=== PATIENT | male | born 1940 | race Caucasian/White ===

== ENCOUNTER 2024-05-25 16:58 | Inpatient (IN) | payer MEDICARE, OTHER ==
[~2024-05-25] VITALS: Ht 167.6 cm; Wt 70.3 kg
[2024-05-25 18:11] LABS: BASOPHILS % (AUTO) 0.2 % (0.0-2.0); HEMATOCRIT 45 % (39-51); HEMOGLOBIN 15.5 g/dL (13.5-17.5); LYMPHOCYTES # (AUTO) 0.5 K/uL (0.8-4.8); LYMPHOCYTES % (AUTO) 5.5 % (20.0-44.0); MEAN CORPUSCULAR HEMOGLOBIN 31 PG (26.0-33.0); MEAN CORPUSCULAR HGB CONC 34 g/dl (31.0-36.0); MEAN CORPUSCULAR VOLUME 90 fL (80-96); MONOCYTES # (AUTO) 1.3 K/uL (0.1-1.30); MONOCYTES % (AUTO) 13.7 % (2.0-12.0); NEUTROPHILS # (AUTO) 7.8 K/uL (1.8-8.9); NEUTROPHILS % (AUTO) 80.6 % (43.0-81.0); PLATELET COUNT (AUTO) 207 K/uL (150-450); RED BLOOD CELL COUNT(AUTO) 5.04 MIL/uL (4.5-6.0); WHITE BLOOD COUNT (AUTO) 9.7 K/uL (4.3-11.0)
[2024-05-25 18:33] LABS: CALCIUM, SERUM 8.6 mg/dL (8.5-10.1); CARBON DIOXIDE 26 mmol/L (21-32); CHLORIDE 104 mmol/L (98-107); CREATININE 1.1 mg/dL (0.6-1.3); GLUCOSE 140 mg/dL (74-106); POTASSIUM 3.7 mmol/L (3.5-5.1); SODIUM SERUM 138 mmol/L (136-145); UREA NITROGEN, BLOOD 27 mg/dL (7-18)
[2024-05-25 18:39] LABS: ALANINE AMINOTRANSFERASE 22 U/L (12-78); ALBUMIN 2.9 g/dL (3.4-5.0); ALCOHOL, BLOOD < 3 mg/dL (0-10); ALKALINE PHOSPHATASE 70 U/L (46-116); ASPARTATE AMINOTRANSFERASE 33 U/L (15-37); BILIRUBIN,DIRECT 0.2 mg/dL (0.0-0.2); BILIRUBIN,TOTAL 0.5 mg/dL (0.2-1.0); SALICYLATE 3.5 mg/dL (2.8-20.0); TOTAL PROTEIN, SERUM 7.9 g/dL (6.4-8.2)
[2024-05-25 19:19] LABS: ACETAMINOPHEN <10 ug/ml (10-30)
[2024-05-25 19:51] LABS: APPEARANCE,URINE CLEAR (CLEAR); BILIRUBIN,URINE NEGATIVE (NEGATIVE); BLOOD, URINE 2+ Ery/uL (NEGATIVE); COLOR,URINE YELLOW (YELLOW); KETONES,URINE TRACE mg/dL (NEGATIVE); LEUKOCYTE ESTERASE ,URINE NEGATIVE (NEGATIVE); NITRITE, URINE POSITIVE (NEGATIVE); PH,URINE 5.5 (5.0-8.0); PROTEIN,URINE 1+ mg/dl (NEGATIVE); UGLUCOSE NEGATIVE (NEGATIVE)
[2024-05-25 20:12] LABS: ADD URINE CULTURE YES; BACTERIA,URINE Few /HPF (None Seen); RBC,URINE 21-50 /HPF (0-2); WBC,URINE 0-2 /HPF (0-3)
[2024-05-25 20:13] LABS: SQUAMOUS EPITHELIAL CELL,UR 0-2 /HPF (None Seen)
[2024-05-25 20:16] LABS: AMPHETAMINE, URINE NEGATIVE (NEGATIVE); BARBITURATE, URINE NEGATIVE (NEGATIVE); BENZODIAZEPINE, URINE NEGATIVE (NEGATIVE); CANNABINOID, URINE NEGATIVE (NEGATIVE); COCCAINE, URINE NEGATIVE (NEGATIVE); OPIATE, URINE NEGATIVE (NEGATIVE); PHENCYCLIDINE SCREEN,URINE NEGATIVE (NEGATIVE)
[2024-05-25] MEDS: IV NS 0.9% 1,000 ML BAG IV ONE (21:00)
[2024-05-25] MEDS ORDERED: CT SWABBABLE VALVE TRANS SET 1 EA INFUS.SET MC ONE (22:18)
[2024-05-25] MEDS ORDERED: IOHEXOL-350 100 ML VIAL IV ONE (22:18)
[2024-05-25] MEDS ORDERED: IV NS 0.9% 250 ML IV ONE (22:20)
[2024-05-25] MEDS ORDERED: ONDANSETRON HCL/PF 4 MG/2 ML VIAL IVP PRN (22:30)
[2024-05-25] MEDS ORDERED: IV NS 0.9% 1,000 ML IV PRN (22:30)
[2024-05-25] MEDS ORDERED: MAGNESIUM HYDROXIDE 30 ML UDC PO PRN (22:30)
[2024-05-25] MEDS ORDERED: MAG HYDROX/AL HYDROX/SIMETH 30 ML UDC PO PRN (22:30)
[2024-05-25] MEDS ORDERED: Z GUARD REMEDY 4 OZ OINT TP PRN (22:30)
[2024-05-25] MEDS ORDERED: ACETAMINOPHEN 325 MG TABLET PO PRN (22:30)
[2024-05-25] MEDS ORDERED: methylPREDNISolone SOD SUCC 40 MG/ML VIAL ONE (23:10)
[2024-05-25] MEDS: ALBUTEROL FS 2.5 MG/3 ML VIAL.NEB NEB SCH (23:12)
[2024-05-25] MEDS: IPRATROPIUM NEB FS 0.5 MG/2.5 ML AMPUL.NEB NEB SCH (23:12)
[2024-05-25 23:14] VITALS: O2SAT 95
[2024-05-25] MEDS: methylPREDNISolone SOD SUCC 40 MG/ML VIAL IV SCH (23:14)
[2024-05-25] MEDS ORDERED: IPRATROPIUM NEB FS 0.5 MG/2.5 ML AMPUL.NEB ONE (23:16)
[2024-05-25] MEDS ORDERED: ALBUTEROL FS 2.5 MG/3 ML VIAL.NEB ONE (23:16)
[2024-05-25 23:24] VITALS: O2SAT 99
[2024-05-25] MEDS ORDERED: PIPERACI/TAZO 3.375GM/D5W 50ML PB IV ONE (23:42)
[2024-05-25] MEDS: PIPERACILLIN /TAZOBACTAM 3.375 G in IV D5W 50 ML IV ONE (23:47)
[2024-05-26] MEDS ORDERED: PIPERACILLIN /TAZOBACTAM 3.375 G in IV D5W 50 ML IV SCH ×2 (06:00)
[2024-05-26] MEDS: IV D5/ 0.9% NACL 1,000 ML IV PRN (09:47)
[2024-05-26] MEDS: LEVOFLOXACIN (250MG) 250 MG TABLET PO ONE (09:56)
[2024-05-26] MEDS: NICOTINE PATCH (14MG) 14 MG PATCH.TD24 TD SCH (09:56)
[2024-05-26] MEDS: ENOXAPARIN SODIUM 40 MG/0.4 ML DISP.SYRIN SQ SCH (09:57)
[2024-05-26] MEDS: PIPERACILLIN /TAZOBACTAM 3.375 G in IV D5W 100 ML IV SCH (10:13)
[2024-05-26] MEDS ORDERED: LORAZEPAM 0.5 MG TABLET PO PRN (12:30)
[2024-05-26 12:35] LABS: BASOPHILS % (AUTO) 0.1 % (0.0-2.0); HEMATOCRIT 43 % (39-51); HEMOGLOBIN 14.6 g/dL (13.5-17.5); LYMPHOCYTES # (AUTO) 0.6 K/uL (0.8-4.8); LYMPHOCYTES % (AUTO) 5.9 % (20.0-44.0); MEAN CORPUSCULAR HEMOGLOBIN 31 PG (26.0-33.0); MEAN CORPUSCULAR HGB CONC 34 g/dl (31.0-36.0); MEAN CORPUSCULAR VOLUME 91 fL (80-96); MONOCYTES # (AUTO) 1.6 K/uL (0.1-1.30); MONOCYTES % (AUTO) 16.9 % (2.0-12.0); NEUTROPHILS # (AUTO) 7.4 K/uL (1.8-8.9); NEUTROPHILS % (AUTO) 77.1 % (43.0-81.0); PLATELET COUNT (AUTO) 216 K/uL (150-450); RED BLOOD CELL COUNT(AUTO) 4.74 MIL/uL (4.5-6.0); RED CELL DISTRIBUTION WIDTH 14.1 % (11.5-15.0); WHITE BLOOD COUNT (AUTO) 9.6 K/uL (4.3-11.0)
[2024-05-26] MEDS: risperiDONE-M 0.5 MG TAB.RAPDIS PO SCH (12:50)
[2024-05-26 13:05] LABS: ALBUMIN 2.6 g/dL (3.4-5.0); BILIRUBIN,TOTAL 0.4 mg/dL (0.2-1.0); CALCIUM, SERUM 8.5 mg/dL (8.5-10.1); CREATININE 1.1 mg/dL (0.6-1.3); MAGNESIUM 2.1 mg/dL (1.8-2.4); PHOSPHORUS 3.3 mg/dL (2.5-4.9); POTASSIUM 3.9 mmol/L (3.5-5.1); TOTAL PROTEIN, SERUM 7.4 g/dL (6.4-8.2)
[2024-05-26 14:00] VITALS: O2SAT 94
[2024-05-26 14:10] VITALS: O2SAT 95
[2024-05-26] MEDS: DIVALPROEX SODIUM 125 MG TABLET.DR PO SCH (16:24)
[2024-05-26 20:00] VITALS: BP 119/81; TEMP 97.5; O2SAT 95
[2024-05-26 20:08] VITALS: O2SAT 95
[2024-05-26 20:18] VITALS: O2SAT 98
[2024-05-27] VITALS (12 sets, daily range): BP systolic 153–160; BP diastolic 66–113; TEMP 97.5–98.8; O2SAT 93–98
[2024-05-27] MEDS ORDERED: NICOTINE PATCH (21MG) 21 MG PATCH.TD24 TD SCH (09:30)
[2024-05-27] MEDS: LEVOFLOXACIN (250MG) 250 MG TABLET PO SCH (09:47)
[2024-05-27] MEDS: CLONIDINE HCL 0.1 MG TABLET PO ONE (20:19)
[2024-05-28] VITALS (10 sets, daily range): BP systolic 137–165; BP diastolic 83–98; TEMP 98–98.1; O2SAT 90–96
[2024-05-28] MEDS: NICOTINE PATCH (21MG) 21 MG PATCH.TD24 TD SCH (08:52)
[2024-05-28] MEDS: methylPREDNISolone SOD SUCC 40 MG/ML VIAL IV SCH (14:31)
[2024-05-29] VITALS (10 sets, daily range): BP systolic 158–180; BP diastolic 97–100; TEMP 97.7–97.8; O2SAT 88–98
[2024-05-29 08:42] LABS: BASOPHILS % (AUTO) 0.1 % (0.0-2.0); HEMATOCRIT 40 % (39-51); HEMOGLOBIN 13.4 g/dL (13.5-17.5); LYMPHOCYTES # (AUTO) 0.9 K/uL (0.8-4.8); LYMPHOCYTES % (AUTO) 10.6 % (20.0-44.0); MEAN CORPUSCULAR HEMOGLOBIN 31 PG (26.0-33.0); MEAN CORPUSCULAR HGB CONC 34 g/dl (31.0-36.0); MEAN CORPUSCULAR VOLUME 91 fL (80-96); MONOCYTES # (AUTO) 1.1 K/uL (0.1-1.30); MONOCYTES % (AUTO) 13.4 % (2.0-12.0); NEUTROPHILS # (AUTO) 6.2 K/uL (1.8-8.9); NEUTROPHILS % (AUTO) 75.9 % (43.0-81.0); PLATELET COUNT (AUTO) 211 K/uL (150-450); RED BLOOD CELL COUNT(AUTO) 4.38 MIL/uL (4.5-6.0); RED CELL DISTRIBUTION WIDTH 14.7 % (11.5-15.0); WHITE BLOOD COUNT (AUTO) 8.2 K/uL (4.3-11.0)
[2024-05-29 10:21] LABS: CALCIUM, SERUM 8.3 mg/dL (8.5-10.1); POTASSIUM 3.8 mmol/L (3.5-5.1)
[2024-05-29] MEDS: IV D5W 1,000 ML IV SCH (10:39)
[2024-05-29] MEDS ORDERED: risperiDONE-M 0.5 MG TAB.RAPDIS PO PRN (11:00)
[2024-05-29] MEDS: risperiDONE-M 0.5 MG TAB.RAPDIS PO SCH ×2 (12:17→22:00)
[2024-05-29] MEDS: DIVALPROEX SODIUM 125 MG CAP.SPRINK PO SCH (16:03)
[2024-05-29] MEDS: CLONIDINE HCL 0.1 MG TABLET PO PRN (18:36)
[2024-05-29] MEDS: hydrALAZINE HCL IV 20 MG VIAL IV ONE (23:02)
[2024-05-30] VITALS (12 sets, daily range): BP systolic 143–168; BP diastolic 79–103; TEMP 97.7–98.1; O2SAT 88–99
[2024-05-30 06:13] LABS: EOSINOPHILS % (AUTO) 0.1 % (0.0-6.0); HEMATOCRIT 42 % (39-51); HEMOGLOBIN 13.9 g/dL (13.5-17.5); LYMPHOCYTES # (AUTO) 1.1 K/uL (0.8-4.8); LYMPHOCYTES % (AUTO) 11.4 % (20.0-44.0); MEAN CORPUSCULAR HEMOGLOBIN 30 PG (26.0-33.0); MEAN CORPUSCULAR HGB CONC 33 g/dl (31.0-36.0); MEAN CORPUSCULAR VOLUME 91 fL (80-96); MONOCYTES # (AUTO) 1.3 K/uL (0.1-1.30); MONOCYTES % (AUTO) 13.9 % (2.0-12.0); NEUTROPHILS % (AUTO) 74.6 % (43.0-81.0); PLATELET COUNT (AUTO) 213 K/uL (150-450); RED BLOOD CELL COUNT(AUTO) 4.59 MIL/uL (4.5-6.0); RED CELL DISTRIBUTION WIDTH 14.7 % (11.5-15.0); WHITE BLOOD COUNT (AUTO) 9.4 K/uL (4.3-11.0)
[2024-05-30 06:38] LABS: CALCIUM, SERUM 8.4 mg/dL (8.5-10.1); POTASSIUM 3.8 mmol/L (3.5-5.1)
[2024-05-30] MEDS ORDERED: CLONIDINE HCL 0.1 MG TABLET PO PRN (10:00)
[2024-05-31] VITALS (12 sets, daily range): BP systolic 142–176; BP diastolic 83–112; TEMP 97.7–98.2; O2SAT 87–99
[2024-05-31 07:36] LABS: BASOPHILS % (AUTO) 0.1 % (0.0-2.0); EOSINOPHILS % (AUTO) 0.3 % (0.0-6.0); HEMATOCRIT 43 % (39-51); HEMOGLOBIN 13.9 g/dL (13.5-17.5); LYMPHOCYTES # (AUTO) 1.3 K/uL (0.8-4.8); LYMPHOCYTES % (AUTO) 12.1 % (20.0-44.0); MEAN CORPUSCULAR HEMOGLOBIN 30 PG (26.0-33.0); MEAN CORPUSCULAR HGB CONC 33 g/dl (31.0-36.0); MEAN CORPUSCULAR VOLUME 91 fL (80-96); MONOCYTES # (AUTO) 1.2 K/uL (0.1-1.30); MONOCYTES % (AUTO) 11.1 % (2.0-12.0); NEUTROPHILS # (AUTO) 8.5 K/uL (1.8-8.9); NEUTROPHILS % (AUTO) 76.4 % (43.0-81.0); PLATELET COUNT (AUTO) 241 K/uL (150-450); RED BLOOD CELL COUNT(AUTO) 4.66 MIL/uL (4.5-6.0); RED CELL DISTRIBUTION WIDTH 14.5 % (11.5-15.0); WHITE BLOOD COUNT (AUTO) 11.1 K/uL (4.3-11.0)
[2024-05-31 07:54] LABS: CALCIUM, SERUM 8.6 mg/dL (8.5-10.1); POTASSIUM 3.7 mmol/L (3.5-5.1)
[2024-05-31 17:10] LABS: ABG BASE EXCESS 4.6 mmol/L (-2.0-3.0); ABG OXYGEN SATURATION 95.3 % (94.0-98.0); ABG PCO2 42.7 mmHg (35.0-48.0); ABG PH 7.452 (7.350-7.450); ABG PO2 73.4 mmHg (83.0-108.0); ABG TOTAL HEMOGLOBIN 14.5 G/dL (13.5-17.5); COHb 0.8 % (0.5-1.5); MetHb 0.1 % (0.0-1.5); O2Hb 94.4 % (94.0-97.0); SITE, ABG RIGHT RADIAL
[2024-06-01] VITALS (7 sets, daily range): BP systolic 135; BP diastolic 79; TEMP 97.7; O2SAT 91–97
[2024-06-01 07:05] LABS: EOSINOPHILS # (AUTO) 0.1 K/uL (0.0-0.7); EOSINOPHILS % (AUTO) 0.7 % (0.0-6.0); HEMATOCRIT 40 % (39-51); HEMOGLOBIN 13.3 g/dL (13.5-17.5); LYMPHOCYTES # (AUTO) 1.1 K/uL (0.8-4.8); LYMPHOCYTES % (AUTO) 10.2 % (20.0-44.0); MEAN CORPUSCULAR HEMOGLOBIN 30 PG (26.0-33.0); MEAN CORPUSCULAR HGB CONC 34 g/dl (31.0-36.0); MEAN CORPUSCULAR VOLUME 91 fL (80-96); MONOCYTES # (AUTO) 1.2 K/uL (0.1-1.30); MONOCYTES % (AUTO) 11.4 % (2.0-12.0); NEUTROPHILS # (AUTO) 8.4 K/uL (1.8-8.9); NEUTROPHILS % (AUTO) 77.7 % (43.0-81.0); PLATELET COUNT (AUTO) 236 K/uL (150-450); RED BLOOD CELL COUNT(AUTO) 4.37 MIL/uL (4.5-6.0); RED CELL DISTRIBUTION WIDTH 14.6 % (11.5-15.0); WHITE BLOOD COUNT (AUTO) 10.8 K/uL (4.3-11.0)
[2024-06-01] MEDS ORDERED: IV D5W 1,000 ML IV PRN (08:11)
[2024-06-01 08:30] LABS: SERUM AMMONIA 37 umol/L (11-32)
[2024-06-01 08:36] LABS: ALANINE AMINOTRANSFERASE 131 U/L (12-78); ALBUMIN 2.3 g/dL (3.4-5.0); ALKALINE PHOSPHATASE 60 U/L (46-116); ASPARTATE AMINOTRANSFERASE 43 U/L (15-37); BILIRUBIN,DIRECT 0.2 mg/dL (0.0-0.2); BILIRUBIN,TOTAL 0.6 mg/dL (0.2-1.0); TOTAL PROTEIN, SERUM 6.7 g/dL (6.4-8.2)
[2024-06-01 08:42] LABS: CALCIUM, SERUM 8.5 mg/dL (8.5-10.1); CREATININE 0.9 mg/dL (0.6-1.3); POTASSIUM 3.8 mmol/L (3.5-5.1)
[2024-06-01] MEDS: predniSONE 20 MG TABLET PO SCH (08:59)
[2024-06-01 09:18] LABS: VALPROIC ACID < 3 ug/mL (50-100)
[2024-06-01] MEDS ORDERED: ALBUT2 NEB (09:28)
[2024-06-01] MEDS ORDERED: ACET325T53 PO (09:28)
[2024-06-01] MEDS ORDERED: CLON0.1T PO (09:28)
[2024-06-01] MEDS ORDERED: LEVO250T59 PO (09:28)
[2024-06-01] MEDS ORDERED: DIVA125C2 PO (09:28)
[2024-06-01] MEDS ORDERED: ENOX40DI SQ (09:28)
[2024-06-01] MEDS ORDERED: RISP0.5T74 PO (09:28)
[2024-06-01] MEDS ORDERED: MAG30ORA PO (09:28)
[2024-06-01] MEDS ORDERED: NICO-762 TD (09:28)
[2024-06-01] MEDS ORDERED: PRED20TA PO (09:28)
== END 2024-06-01 15:00 | DRG 190 ==
LOC: ER 17:10 → TRANSITION 05-26 03:26 → MED 05-26 06:06
PROVIDERS: ADMIT Nurse Practitioner Acute Care; ATTEND Internal Medicine
DX: J44.1 Chronic obstructive pulmonary disease with (acute) exacerbation (principal); G93.41 Metabolic encephalopathy; J96.01 Acute respiratory failure with hypoxia; N39.0 Urinary tract infection, site not specified; E44.0 Moderate protein-calorie malnutrition; E87.0 Hyperosmolality and hypernatremia; N17.9 Acute kidney failure, unspecified; E86.0 Dehydration; E86.1 Hypovolemia; E88.09 Other disorders of plasma-protein metabolism, not elsewhere classified; F03.90 Unspecified dementia, unspecified severity, without behavioral disturbance, psychotic disturbance, mood disturbance, and anxiety; Z71.6 Tobacco abuse counseling; Z20.822 Contact with and (suspected) exposure to COVID-19; Z73.6 Limitation of activities due to disability; Z68.25 Body mass index [BMI] 25.0-25.9, adult; F17.210 Nicotine dependence, cigarettes, uncomplicated; F25.0 Schizoaffective disorder, bipolar type; B96.89 Other specified bacterial agents as the cause of diseases classified elsewhere
CPT/HCPCS: 36415; 36600; 71045-TC; 80048-TC; 80053-TC; 80076-TC; 80164-TC; 81001; 82140-TC; 82607-TC; 82803-TC; 83735-TC; 83880; 84100-TC; 84484-TC; 85025-TC; 85378-TC; 87086-TC; 92526; 92611-TC; 93307-TC; 94760-TC; 94762-TC; 94799-TC; A4223; G0378; G0480; J0360; J1650; J2543; J2919; J7030; J7042; J7050; J7060; J7070; Q9967

== ENCOUNTER 2024-06-21 11:44 | Inpatient (IN) | payer MEDICARE, OTHER ==
[~2024-06-21] VITALS: Ht 182.9 cm; Wt 72.1 kg
[2024-06-21] VITALS (15 sets, daily range): BP systolic 132–161; BP diastolic 68–101; TEMP 97.9–98.8; O2SAT 90–96
[2024-06-21 12:28] LABS: CALCIUM, SERUM 8.6 mg/dL (8.5-10.1); CARBON DIOXIDE 33 mmol/L (21-32); CHLORIDE 102 mmol/L (98-107); CREATININE 0.8 mg/dL (0.6-1.3); GLUCOSE 122 mg/dL (74-106); POTASSIUM 4.3 mmol/L (3.5-5.1); SODIUM SERUM 139 mmol/L (136-145); UREA NITROGEN, BLOOD 21 mg/dL (7-18)
[2024-06-21 12:32] LABS: INR 1.03 (0.91-1.10); PARTIAL THROMBOPLASTIN TIME 24.9 SEC (24.3-34.3); PROTHROMBIN TIME 10.9 SECS (9.2-11.1)
[2024-06-21 12:34] LABS: BASOPHILS # (AUTO) 0.1 K/uL (0.0-0.2); BASOPHILS % (AUTO) 0.7 % (0.0-2.0); EOSINOPHILS # (AUTO) 0.3 K/uL (0.0-0.7); EOSINOPHILS % (AUTO) 3.1 % (0.0-6.0); HEMATOCRIT 39 % (39-51); HEMOGLOBIN 12.9 g/dL (13.5-17.5); LYMPHOCYTES # (AUTO) 1.5 K/uL (0.8-4.8); LYMPHOCYTES % (AUTO) 17.7 % (20.0-44.0); MEAN CORPUSCULAR HEMOGLOBIN 30 PG (26.0-33.0); MEAN CORPUSCULAR HGB CONC 33 g/dl (31.0-36.0); MEAN CORPUSCULAR VOLUME 91 fL (80-96); MONOCYTES # (AUTO) 0.9 K/uL (0.1-1.30); NEUTROPHILS # (AUTO) 5.6 K/uL (1.8-8.9); NEUTROPHILS % (AUTO) 67.5 % (43.0-81.0); RED BLOOD CELL COUNT(AUTO) 4.28 MIL/uL (4.5-6.0); RED CELL DISTRIBUTION WIDTH 14.7 % (11.5-15.0); WHITE BLOOD COUNT (AUTO) 8.3 K/uL (4.3-11.0)
[2024-06-21 12:36] LABS: ALANINE AMINOTRANSFERASE 26 U/L (12-78); ALBUMIN 2.1 g/dL (3.4-5.0); ALKALINE PHOSPHATASE 87 U/L (46-116); ASPARTATE AMINOTRANSFERASE 19 U/L (15-37); BILIRUBIN,DIRECT 0.1 mg/dL (0.0-0.2); BILIRUBIN,TOTAL 0.2 mg/dL (0.2-1.0); LIPASE 29 U/L (16-77); TOTAL PROTEIN, SERUM 7.5 g/dL (6.4-8.2)
[2024-06-21 12:43] LABS: PLATELET COUNT (AUTO) 2 K/uL (150-450)
[2024-06-21] MEDS ORDERED: dexaMETHasone SOD PHOSPHATE 1 ML ONE (12:58)
[2024-06-21 13:05] LABS: EOSINOPHILS % (MANUAL) 2 % (0-4); LYMPHOCYTES % (MANUAL) 18 % (16-48); MONOCYTES % (MANUAL) 9 % (0-11.0); NEUTROPHILS % (MANUAL) 71 (42-76); PLATELET ESTIMATE DECREASED
[2024-06-21] MEDS: dexaMETHasone SOD PHOSPHATE 10 MG/ML VIAL IV ONE (13:05)
[2024-06-21 13:06] LABS: ANISOCYTOSIS 1+
[2024-06-21] MEDS ORDERED: DIVA125T2 PO (14:04)
[2024-06-21] MEDS ORDERED: ALBU2.5V38 NEB (14:04)
[2024-06-21] MEDS ORDERED: RISP0.5T65 PO (14:04)
[2024-06-21] MEDS ORDERED: ALUM320O4 PO (14:04)
[2024-06-21] MEDS ORDERED: MAGN400O6 PO (14:04)
[2024-06-21] MEDS ORDERED: KETO15CR2 TP (14:04)
[2024-06-21] MEDS ORDERED: MULT-213 PO (14:04)
[2024-06-21] MEDS ORDERED: ACET650S11 RC (14:04)
[2024-06-21] MEDS ORDERED: ENOX40DI9 SQ (14:04)
[2024-06-21] MEDS ORDERED: IPRA3AMP23 IH (14:04)
[2024-06-21] MEDS ORDERED: ACETAMINOPHEN 325 MG TABLET PO PRN (15:00)
[2024-06-21] MEDS ORDERED: ONDANSETRON HCL/PF 4 MG/2 ML VIAL IVP PRN (15:00)
[2024-06-21] MEDS ORDERED: MAGNESIUM HYDROXIDE 30 ML UDC PO PRN (15:00)
[2024-06-21] MEDS ORDERED: MAG HYDROX/AL HYDROX/SIMETH 30 ML UDC PO PRN (15:00)
[2024-06-21] MEDS ORDERED: Z GUARD REMEDY 4 OZ OINT TP PRN (15:00)
[2024-06-21] MEDS: dexaMETHasone SOD PHOSPHATE 10 MG/ML VIAL IV STA (16:32)
[2024-06-21] MEDS: risperiDONE 0.25 MG TABLET PO SCH (16:32)
[2024-06-21] MEDS ORDERED: IPRATROPIUM NEB FS 0.5 MG/2.5 ML AMPUL.NEB HHN PRN (19:30)
[2024-06-21] MEDS ORDERED: ALBUTEROL FS 2.5 MG/0.5 ML VIAL.NEB HHN PRN (19:30)
[2024-06-21] MEDS: ALBUTEROL FS 2.5 MG/3 ML VIAL.NEB NEB SCH (20:14)
[2024-06-21] MEDS: KETOCONAZOLE 2% CREAM 15 GM TUBE TP SCH (21:00)
[2024-06-21 21:19] LABS: HIV-1 p24 ANTIGEN NON REACTIVE (NONREACTIVE); HIV-1/2 ANTIBODY NON REACTIVE (NONREACTIVE)
[2024-06-22] VITALS (14 sets, daily range): BP systolic 116–175; BP diastolic 68–99; TEMP 97.9–98.4; O2SAT 92–99
[2024-06-22] MEDS: MULTIVIT W/MINERALS 1 TAB TABLET PO SCH (08:39)
[2024-06-22] MEDS: dexAMETHasone 4 MG TABLET PO SCH (11:12)
[2024-06-22] MEDS: ALBUTEROL FS 2.5 MG/3 ML VIAL.NEB NEB SCH (13:05)
[2024-06-22 14:05] LABS: HEMATOCRIT 36 % (39-51); HEMOGLOBIN 12.2 g/dL (13.5-17.5); LYMPHOCYTES # (AUTO) 0.9 K/uL (0.8-4.8); LYMPHOCYTES % (AUTO) 6.8 % (20.0-44.0); MEAN CORPUSCULAR HEMOGLOBIN 30 PG (26.0-33.0); MEAN CORPUSCULAR HGB CONC 34 g/dl (31.0-36.0); MEAN CORPUSCULAR VOLUME 89 fL (80-96); MONOCYTES # (AUTO) 1.4 K/uL (0.1-1.30); MONOCYTES % (AUTO) 11.2 % (2.0-12.0); NEUTROPHILS # (AUTO) 10.6 K/uL (1.8-8.9); RED BLOOD CELL COUNT(AUTO) 4.04 MIL/uL (4.5-6.0); RED CELL DISTRIBUTION WIDTH 14.3 % (11.5-15.0); WHITE BLOOD COUNT (AUTO) 12.9 K/uL (4.3-11.0)
[2024-06-22 14:06] LABS: CALCIUM, SERUM 8.6 mg/dL (8.5-10.1); MAGNESIUM 1.8 mg/dL (1.8-2.4); POTASSIUM 3.7 mmol/L (3.5-5.1)
[2024-06-22 14:10] LABS: PLATELET COUNT (AUTO) 3 K/uL (150-450)
[2024-06-22 14:25] LABS: RHEUMATOID FACTOR SCREEN POSITIVE (NEGATIVE)
[2024-06-22 14:28] LABS: C-REACTIVE PROTEIN 0.83 mg/dL (0.0-0.30); THYROID STIMULATING HORMONE 4.38 uIU/mL (0.358-3.74)
[2024-06-22 15:18] LABS: LYMPHOCYTES % (MANUAL) 8 % (16-48); MONOCYTES % (MANUAL) 7 % (0-11.0); NEUTROPHILS % (MANUAL) 85 (42-76); PLATELET ESTIMATE DECREASED
[2024-06-22 15:20] LABS: ANISOCYTOSIS 1+
[2024-06-22] MEDS: K PHOS NEUTRAL 250 MG TABLET PO ONE (16:30)
[2024-06-23] VITALS (19 sets, daily range): BP systolic 126–155; BP diastolic 62–98; TEMP 97.7–98.4; O2SAT 90–99
[2024-06-23] MEDS: CLONIDINE HCL 0.1 MG TABLET PO PRN (00:09)
[2024-06-23 05:08] LABS: HBSAG SCREEN Negative (Negative); HEPATITIS A AB, IgM Negative (Negative); HEPATITIS B CORE AB, IgM Negative (Negative)
[2024-06-23 07:12] LABS: *EBV AB VCA, IgG >600.0 U/mL (0.0-17.9); *EBV AB VCA, IgM <36.0 U/mL (0.0-35.9); CMV, IgG <0.60 U/mL (0.00-0.59); CMV, IgM <30.0 AU/mL (0.0-29.9)
[2024-06-23] MEDS: OLANZAPINE 10 MG VIAL IM ONE (12:34)
[2024-06-23 13:23] LABS: CALCIUM, SERUM 8.8 mg/dL (8.5-10.1); MAGNESIUM 1.9 mg/dL (1.8-2.4); PHOSPHORUS 2.2 mg/dL (2.5-4.9)
[2024-06-23 14:00] LABS: HEMATOCRIT 37 % (39-51); HEMOGLOBIN 12.8 g/dL (13.5-17.5); LYMPHOCYTES # (AUTO) 0.7 K/uL (0.8-4.8); LYMPHOCYTES % (AUTO) 3.8 % (20.0-44.0); MEAN CORPUSCULAR HEMOGLOBIN 31 PG (26.0-33.0); MEAN CORPUSCULAR HGB CONC 35 g/dl (31.0-36.0); MEAN CORPUSCULAR VOLUME 90 fL (80-96); MONOCYTES # (AUTO) 1.5 K/uL (0.1-1.30); MONOCYTES % (AUTO) 7.6 % (2.0-12.0); NEUTROPHILS # (AUTO) 16.9 K/uL (1.8-8.9); NEUTROPHILS % (AUTO) 88.6 % (43.0-81.0); RED BLOOD CELL COUNT(AUTO) 4.12 MIL/uL (4.5-6.0); WHITE BLOOD COUNT (AUTO) 19.1 K/uL (4.3-11.0)
[2024-06-23 14:16] LABS: PLATELET COUNT (AUTO) 4 K/uL (150-450)
[2024-06-23 15:11] LABS: LYMPHOCYTES % (MANUAL) 5 % (16-48); MONOCYTES % (MANUAL) 6 % (0-11.0); NEUTROPHILS % (MANUAL) 89 (42-76); PLATELET ESTIMATE DECREASED
[2024-06-23 15:15] LABS: ANISOCYTOSIS 1+
[2024-06-23] MEDS: ACETAMINOPHEN 325 MG TABLET PO ONE (16:04)
[2024-06-23] MEDS: K PHOS NEUTRAL 250 MG TABLET PO ONE (16:05)
[2024-06-23] MEDS: diphenhydrAMINE HCL 50 MG/ML VIAL IV ONE (16:05)
[2024-06-24] VITALS (26 sets, daily range): BP systolic 118–179; BP diastolic 58–94; TEMP 97.2–98.4; O2SAT 90–99
[2024-06-24 04:09] LABS: HEPATITIS B SURFACE AB Non Reactive (.); IMMUNOGLOBULIN A, SERUM 262 mg/dL (61-437); IMMUNOGLOBULIN G, SERUM 2186 mg/dL (603-1613); IMMUNOGLOBULIN M, SERUM 163 mg/dL (15-143)
[2024-06-24 07:32] LABS: CALCIUM, SERUM 8.3 mg/dL (8.5-10.1); CREATININE 0.8 mg/dL (0.6-1.3); MAGNESIUM 1.9 mg/dL (1.8-2.4); PHOSPHORUS 3.6 mg/dL (2.5-4.9); POTASSIUM 3.5 mmol/L (3.5-5.1)
[2024-06-24 08:08] LABS: BASOPHILS % (AUTO) 0.1 % (0.0-2.0); EOSINOPHILS % (AUTO) 0.1 % (0.0-6.0); HEMATOCRIT 33 % (39-51); LYMPHOCYTES # (AUTO) 1.6 K/uL (0.8-4.8); LYMPHOCYTES % (AUTO) 11.2 % (20.0-44.0); MEAN CORPUSCULAR HEMOGLOBIN 30 PG (26.0-33.0); MEAN CORPUSCULAR HGB CONC 33 g/dl (31.0-36.0); MEAN CORPUSCULAR VOLUME 90 fL (80-96); MONOCYTES # (AUTO) 1.6 K/uL (0.1-1.30); MONOCYTES % (AUTO) 11.2 % (2.0-12.0); NEUTROPHILS % (AUTO) 77.4 % (43.0-81.0); RED BLOOD CELL COUNT(AUTO) 3.66 MIL/uL (4.5-6.0); RED CELL DISTRIBUTION WIDTH 15.1 % (11.5-15.0); WHITE BLOOD COUNT (AUTO) 14.2 K/uL (4.3-11.0)
[2024-06-24] MEDS: ESCITALOPRAM OXALATE (10 MG) 10 MG TABLET PO SCH (08:29)
[2024-06-24 09:15] LABS: PLATELET COUNT (AUTO) 6 K/uL (150-450)
[2024-06-24 12:07] LABS: *ANA ANTI-CENTROMERE B AB <0.2 AI (0.0-0.9); *ANA ANTI-DNA(DS) AB, QN <1 IU/mL (0-9); *ANA ANTI-JO-1 <0.2 AI (0.0-0.9); *ANA ANTICHROMATIN ANTIBODY <0.2 AI (0.0-0.9); *ANA RNP ANTIBODIES <0.2 AI (0.0-0.9); *ANA SJOGREN'S ANTI-SS-A <0.2 AI (0.0-0.9); *ANA SJOGREN'S ANTI-SS-B 2.6 AI (0.0-0.9); *ANAANTI-SCLERODERMA-70 AB <0.2 AI (0.0-0.9); *ANASMITH AB <0.2 AI (0.0-0.9); FREE KAPPA LT CHAINS SERUM 46.4 mg/L (3.3-19.4); KAPPA/LAMBDA RATIO SERUM 1.41 (0.26-1.65)
[2024-06-24 14:55] LABS: D-DIMER 3.64 mg/L(FEU (0.17-0.50); INR 1.05 (0.91-1.10); PARTIAL THROMBOPLASTIN TIME 23.4 SEC (24.3-34.3); PROTHROMBIN TIME 11.1 SECS (9.2-11.1)
[2024-06-24] MEDS: ACETAMINOPHEN 325 MG TABLET PO ONE (15:15)
[2024-06-24] MEDS: diphenhydrAMINE HCL 50 MG/ML VIAL IV ONE (15:15)
[2024-06-24 17:16] LABS: ANISOCYTOSIS 1+; LYMPHOCYTES % (MANUAL) 12 % (16-48); MONOCYTES % (MANUAL) 4 % (0-11.0); NEUTROPHILS % (MANUAL) 84 (42-76); PLATELET ESTIMATE DECREASED
[2024-06-25] VITALS (10 sets, daily range): BP systolic 143–155; BP diastolic 83–90; TEMP 97.7–98.6; O2SAT 91–98
[2024-06-25 07:31] LABS: MAGNESIUM 2.2 mg/dL (1.8-2.4); PHOSPHORUS 3.8 mg/dL (2.5-4.9); POTASSIUM 3.9 mmol/L (3.5-5.1)
[2024-06-25 07:34] LABS: BASOPHILS % (AUTO) 0.1 % (0.0-2.0); HEMATOCRIT 35 % (39-51); HEMOGLOBIN 11.5 g/dL (13.5-17.5); LYMPHOCYTES # (AUTO) 0.9 K/uL (0.8-4.8); LYMPHOCYTES % (AUTO) 6.6 % (20.0-44.0); MEAN CORPUSCULAR HEMOGLOBIN 30 PG (26.0-33.0); MEAN CORPUSCULAR HGB CONC 33 g/dl (31.0-36.0); MEAN CORPUSCULAR VOLUME 90 fL (80-96); MONOCYTES # (AUTO) 1.5 K/uL (0.1-1.30); MONOCYTES % (AUTO) 10.4 % (2.0-12.0); NEUTROPHILS # (AUTO) 11.7 K/uL (1.8-8.9); NEUTROPHILS % (AUTO) 82.9 % (43.0-81.0); RED BLOOD CELL COUNT(AUTO) 3.84 MIL/uL (4.5-6.0); WHITE BLOOD COUNT (AUTO) 14.1 K/uL (4.3-11.0)
[2024-06-25 08:36] LABS: PLATELET COUNT (AUTO) 26 K/uL (150-450)
[2024-06-25 13:09] LABS: *SPE A/G RATIO 0.6 (0.7-1.7); *SPE ALBUMIN 2.5 g/dL (2.9-4.4); *SPE ALPHA-1-GLOBULIN 0.3 g/dL (0.0-0.4); *SPE BETA GLOBULIN 1.1 g/dL (0.7-1.3); *SPE GLOBULIN, TOTAL 4.4 g/dL (2.2-3.9); *SPE M-SPIKE 0.3 g/dL (Not Observed); *SPE PROTEIN TOTAL 6.9 g/dL (6.0-8.5)
[2024-06-25 13:09] LABS: HEPARIN INDUCED PLT AB 0.078 OD (0.000-0.400)
[2024-06-25 15:07] LABS: *THROMBIN TIME 19.5 sec (0.0-23.0); *dPT CONFIRM RATIO 1.31 Ratio (0.00-1.34); *dRVVT 51.1 sec (0.0-47.0)
[2024-06-25 16:55] LABS: BAND % (MANUAL) 3 % (0.0-5.0); LYMPHOCYTES % (MANUAL) 8 % (16-48); MONOCYTES % (MANUAL) 10 % (0-11.0); NEUTROPHILS % (MANUAL) 79 (42-76); PLATELET ESTIMATE DECREASED
[2024-06-25 16:56] LABS: ANISOCYTOSIS 1+; TEAR DROP CELLS 1+
[2024-06-26] VITALS (10 sets, daily range): BP systolic 140–182; BP diastolic 80–99; TEMP 97.9–98.5; O2SAT 93–97
[2024-06-26 07:41] LABS: BASOPHILS % (AUTO) 0.2 % (0.0-2.0); EOSINOPHILS # (AUTO) 0.1 K/uL (0.0-0.7); HEMATOCRIT 37 % (39-51); HEMOGLOBIN 12.2 g/dL (13.5-17.5); LYMPHOCYTES # (AUTO) 2.2 K/uL (0.8-4.8); LYMPHOCYTES % (AUTO) 16.6 % (20.0-44.0); MEAN CORPUSCULAR HEMOGLOBIN 30 PG (26.0-33.0); MEAN CORPUSCULAR HGB CONC 33 g/dl (31.0-36.0); MEAN CORPUSCULAR VOLUME 92 fL (80-96); MONOCYTES # (AUTO) 1.7 K/uL (0.1-1.30); MONOCYTES % (AUTO) 12.8 % (2.0-12.0); NEUTROPHILS # (AUTO) 9.3 K/uL (1.8-8.9); NEUTROPHILS % (AUTO) 69.4 % (43.0-81.0); PLATELET COUNT (AUTO) 65 K/uL (150-450); RED CELL DISTRIBUTION WIDTH 15.4 % (11.5-15.0); WHITE BLOOD COUNT (AUTO) 13.4 K/uL (4.3-11.0)
[2024-06-26 07:50] LABS: CALCIUM, SERUM 8.8 mg/dL (8.5-10.1); CREATININE 0.9 mg/dL (0.6-1.3); POTASSIUM 3.9 mmol/L (3.5-5.1)
[2024-06-26] MEDS ORDERED: ESCI10TA PO (10:14)
[2024-06-26 11:53] LABS: EOSINOPHILS % (MANUAL) 2 % (0-4); LYMPHOCYTES % (MANUAL) 23 % (16-48); MONOCYTES % (MANUAL) 10 % (0-11.0); NEUTROPHILS % (MANUAL) 65 (42-76); PLATELET ESTIMATE DECREASED
[2024-06-26 11:54] LABS: ANISOCYTOSIS 1+
[2024-06-26] MEDS: LORAZEPAM 0.5 MG TABLET PO PRN (17:56)
== END 2024-06-26 16:15 | DRG 813 ==
LOC: ER 11:48 → TELE1 14:16 → TELE-TD 23:52 → MEDSG1 06-22 09:25
PROVIDERS: ADMIT Nurse Practitioner Acute Care; ATTEND Nurse Practitioner Acute Care
PROC: 30233R1 Transfusion of Nonautologous Platelets into Peripheral Vein, Percutaneous Approach (ICD-10-PCS; principal; 2024-06-21)
PROC: 30233K1 Transfusion of Nonautologous Frozen Plasma into Peripheral Vein, Percutaneous Approach (ICD-10-PCS; 2024-06-23)
DX: D69.59 Other secondary thrombocytopenia (principal); G93.49 Other encephalopathy; D61.818 Other pancytopenia; F03.94 Unspecified dementia, unspecified severity, with anxiety; F20.9 Schizophrenia, unspecified; F03.90 Unspecified dementia, unspecified severity, without behavioral disturbance, psychotic disturbance, mood disturbance, and anxiety; D69.3 Immune thrombocytopenic purpura; E88.09 Other disorders of plasma-protein metabolism, not elsewhere classified; F17.210 Nicotine dependence, cigarettes, uncomplicated; J44.9 Chronic obstructive pulmonary disease, unspecified; D64.9 Anemia, unspecified; F29 Unspecified psychosis not due to a substance or known physiological condition; F41.9 Anxiety disorder, unspecified; D72.829 Elevated white blood cell count, unspecified; T42.6X5A Adverse effect of other antiepileptic and sedative-hypnotic drugs, initial encounter; Y92.129 Unspecified place in nursing home as the place of occurrence of the external cause; D72.821 Monocytosis (symptomatic)
CPT/HCPCS: 36415; 70450-TC; 71045-TC; 76700-TC; 80048-TC; 80076-TC; 80164-TC; 82607-TC; 82728-TC; 82784; 83010; 83540-TC; 83615-TC; 83690-TC; 83735-TC; 84100-TC; 84155; 84165; 84443-TC; 84484-TC; 85025-TC; 85045-TC; 85396; 85613; 85670; 85705; 85730-TC; 85732; 86022; 86140-TC; 86225; 86235; 86334; 86431-TC; 86644; 86645; 86664; 86706; 86850-TC; 86880-TC; 87040-TC; 87081-TC; 87806; 93970-TC; 94760-TC; 94799-TC; 97110-TC; 97116-TC; 97530-TC; A4223; A6403; G0378; J1100; J1200; J3490; J7030; J7050; J8540; P9017; P9034